=== PATIENT | female | born 2005 | race Two or more races ===

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

== ENCOUNTER 2024-04-18 18:37 | Emergency (ER) | payer OTHER ==
[2024-04-18] MEDS ORDERED: KETOROLAC 15 MG/ML 1 ML VIAL ONE (20:08)
== END 2024-04-18 20:25 | disposition home or self-care (01) ==
LOC: EC 18:37
DX: K08.89 Other specified disorders of teeth and supporting structures (principal)
CPT/HCPCS: 99282

== ENCOUNTER 2025-02-07 20:33 | Inpatient (IN) | payer MEDICAID, OTHER ==
--- NOTE | 2025-02-07 21:33 | ED ---
Anxiety HPI - General Chief Complaint: Anxiety Stated Complaint: Mental Health Time Seen by Provider: 02/07/25 20:51 Source: patient, RN notes reviewed Mode of arrival: ambulatory - History of Present Illness Initial Comments: This is a calm and cooperative 19-year-old female with history of depression/anxiety presenting with family for anxiety/panic attacks x 5 weeks. Patient states she has frequent episodes of overthinking causing hyperventilation and crying that has been recurrent for the past 5 weeks. States he has panic attacks often last for hours with associated numbness in her face/hands, including tonight. Patient endorses use of trazodone for sleep. Endorses going to [facility] and sees Renzo as her psychiatrist. Endorses recent start of new medication 7 days ago, stating current symptoms started before starting medication but have not improved despite use. Denies visual/auditory hallucinations, SI/HI. MD Complaint: anxiety Onset/Timin -: week(s) Symptoms: extremity numbness/tingling, perioral numbness/tingling Place: home Previous History of Same: Yes Quality: intermittent Provoking factors: emotional stress - Related Data Home Medications: Home Medications Medication Instructions Recorded Confirmed Vilazodone HCl [Viibryd] 10 mg PO DAILY 02/07/25 02/07/25 traZODone HCL [Desyrel] 50 mg PO HS 02/07/25 02/07/25 Allergies/Adverse Reactions: Allergies Allergy/AdvReac Type Severity Reaction Status Date / Time No Known Allergies Allergy Verified 02/07/25 20:37 Review of Systems ROS Statement: Those systems with pertinent positive or pertinent negative responses have been documented in the HPI. ROS Other: All systems not noted in ROS Statement are negative. Past Medical History Past Medical History: No Reported History History of Any Multi-Drug Resistant Organisms: None Reported Past Surgical History: Adenoidectomy Past Psychological History: Anxiety, Depression Smoking Status: Vaper Past Alcohol Use History: None Reported Past Drug Use History: None Reported General Exam Limitations: no limitations General appearance: alert, in no apparent distress Head exam: Present: atraumatic, normocephalic, normal inspection Eye exam: Present: normal appearance, PERRL, EOMI. Absent: scleral icterus, conjunctival injection, periorbital swelling ENT exam: Present: normal exam, mucous membranes moist Neck exam: Present: normal inspection. Absent: tenderness, meningismus, lymphadenopathy Respiratory exam: Present: normal lung sounds bilaterally. Absent: respiratory distress, wheezes, rales, rhonchi, stridor Cardiovascular Exam: Present: regular rate, normal rhythm, normal heart sounds. Absent: systolic murmur, diastolic murmur, rubs, gallop, clicks GI/Abdominal exam: Present: soft, normal bowel sounds. Absent: distended, tende rness, guarding, rebound, rigid Extremities exam: Present: normal inspection, full ROM, normal capillary refill. Absent: tenderness, pedal edema, joint swelling, calf tenderness Back exam: Present: normal inspection Neurological exam: Present: alert, oriented X3, CN II-XII intact Psychiatric exam: Present: normal affect, anxious Skin exam: Present: warm, dry, intact, normal color. Absent: rash Course Vital Signs 02/07/25 20:34 Temperature 98 F Pulse Rate 72 Respiratory 18 Rate Blood Pressure 127/86 O2 Sat by Pulse 100 Oximetry Medical Decision Making - Medical Decision Making Was pt. sent in by a medical professional or institution (, PA, ACCOUNTS RECEIVABLE MANAGER, urgent care, hospital, or [facility]...) When possible be specific @ -No Did you speak to anyone other than the patient for history (EMS, parent, family, police, friend...)? What history was obtained from this source @ -No Did you review nursing and triage notes (agree or disagree)? Why? @ -I reviewed and agree with nursing and triage notes Were old charts reviewed (outside hosp., previous admission, EMS record, old EKG, old radiological studies, urgent care reports/EKG's, [facility] records)? Report findings @ -No old charts were reviewed Differential Diagnosis (chest pain, altered mental status, abdominal pain women, abdominal pain men, vaginal bleeding, weakness, fever, dyspnea, syncope, headache, dizziness, GI bleed, back pain, seizure, CVA, palpatations, mental health, musculoskeletal)? @ -Differential Mental Health Depression, anxiety, bipolar, psychosis, schizophrenia, borderline personality, situational depression, adjustment disorder, behavioral disorder, brain tumor, malingering, substance abuse, encephalopathy, medication reaction, dementia, hypothyroidism, degenerative neurologic disorder, lupus.... This is not meant to be all-inclusive list EKG interpreted by me (3pts min.). @ -Not done X-rays interpreted by me (1pt min.). @ -None done CT interpreted by me (1pt min.). @ -None done U/S interpreted by me (1pt. min.). @ -None done What testing was considered but not performed or refused? (CT, X-rays, U/S, labs)? Why? @ -None What meds were considered but not given or refused? Why? @ -None Did you discuss the management of the patient with other professionals (professionals i.e. DrHenna, PA, ACCOUNTS RECEIVABLE MANAGER, lab, RT, psych nurse, transition social worker, superintendent seed mill, teacher, intelligence officer basic, lead case manager)? Give summary @ -No Was smoking cessation discussed for >3mins.? @ -No Was critical care preformed (if so, how long)? @ -No Were there social determinants of health that impacted care today? How? (Homelessness, low income, unemployed, alcoholism, drug addiction, transportation, low edu. Level, literacy, decrease access to med. care, skilled nursing, rehab)? @ -No Was there de-escalation of care discussed even if they declined (Discuss DNR or withdrawal of care, Hospice)? DNR status @ -No What co-morbidities impacted this encounter? (DM, HTN, Smoking, COPD, CAD, Cancer, CVA, ARF, Chemo, Hep., AIDS, mental health diagnosis, sleep apnea, morbid obesity)? @ -None Was patient admitted / discharged? Hospital course, mention meds given and route, prescriptions, significant lab abnormalities, going to OR and other pertinent info. @ -Patient spoke to EPS, admitting feeling tired of going through her current situation, creating concern for possible suicidal thoughts/ideation. Patient will be admitted to [facility] for further evaluation and treatment. Discussed patient with Dr. Jones. Undiagnosed new problem with uncertain prognosis? @ -No Drug Therapy requiring intensive monitoring for toxicity (Heparin, Nitro, Insulin, Cardizem)? @ -No Were any procedures done? @ -No Diagnosis/symptom? @ -Anxiety/depression, SI Acute, or Chronic, or Acute on Chronic? @ -Acute Uncomplicated (without systemic symptoms) or Complicated (systemic symptoms)? @ -Uncomplicated Side effects of treatment? @ -No Exacerbation, Progression, or Severe Exacerbation? @ -Exacerbation Poses a threat to life or bodily function? How? (Chest pain, [place], [place], pneumonia, PE, COPD, DKA, ARF, appy, cholecystitis, CVA, Diverticulitis, Homicidal, Suicidal, threat to staff... and all critical care pts) @ -Suicidal ideation - Lab Data Lab Results 02/07/25 Range/Units 22:53 SARS-CoV-2 (PCR) Not Detected (Not Detectd) Disposition Clinical Impression: Acute anxiety, Suicidal ideation Disposition: ADMITTED IP TO THIS [facility] Time of Disposition: 23:31 Decision Date: 02/07/25 Decision Time: 23:31
[2025-02-07] MEDS ORDERED: IBUPROFEN 600 MG TAB PO PRN (23:43)
[2025-02-07] MEDS ORDERED: MAGNESIUM HYDROXIDE 2,400 MG/30 ML CUP PO PRN (23:43)
[2025-02-07] MEDS ORDERED: HALOPERIDOL LACTATE 5 MG/ML 1 ML VIAL IM PRN (23:43)
[2025-02-07] MEDS ORDERED: LORazepam 2 MG/ML INJ IM PRN (23:43)
[2025-02-07] MEDS ORDERED: MAG HYDROX/AL HYDROX/SIMETH 355 ML BOTTLE PO PRN (23:43)
[2025-02-07] MEDS ORDERED: haloperidoL 5 MG TAB PO PRN (23:43)
[2025-02-08 00:17] LABS: Amphetamine Screen,Urine Not Detected (NotDetected); Barbiturate Screen,Urine Not Detected (NotDetected); Benzodiazepines Screen,Urine Not Detected (NotDetected); Cocaine Screen,Urine Not Detected (NotDetected); Methadone Screen, Urine Not Detected (NotDetected); Opiate Screen,Urine Not Detected (NotDetected); Oxycodone Screen, Urine Not Detected (NotDetected); Phencyclidine Screen,Urine Not Detected (NotDetected); Tricyclic Antidepressant,Urine Not Detected (NotDetected); Urn Cannabinoid Scrn Detected (NotDetected)
[2025-02-08] MEDS: ACETAMINOPHEN TAB 325 MG TAB PO PRN (01:05)
[2025-02-08] MEDS: LORazepam 1 MG TAB PO PRN (01:07)
[2025-02-08 08:17] LABS: Basophils # (A) 0.04 10*3/uL (0.00-0.10); Basophils % (A) 0.8 %; Eosinophils # (A) 0.07 10*3/uL (0.04-0.35); Eosinophils % (A) 1.4 %; HCT 40.9 % (37.2-46.3); HGB 13.8 g/dL (12.0-15.0); Lymphocytes # (A) 2.03 10*3/uL (0.90-5.00); Lymphocytes % (A) 40.3 %; MCH 28.6 pg (27.0-32.0); MCHC 33.7 g/dL (32.0-37.0); MCV 84.9 fL (80.0-97.0); Monocytes # (A) 0.46 10*3/uL (0.20-1.00); Monocytes % (A) 9.1 %; Neutrophils # (A) 2.43 10*3/uL (1.80-7.70); Neutrophils % (A) 48.2 %; Platelet Count 318 10*3/uL (140-440); RBC 4.82 10*6/uL (4.10-5.20); RDW 13.1 % (11.5-14.5); WBC 5.04 10*3/uL (4.50-10.00)
[2025-02-08 08:37] LABS: ALT 13 U/L (4-34); AST 26 U/L (14-36); African American GFR (CKD) >90 (>60 ml/min/1.73 sqM); Albumin 4.6 g/dL (3.5-5.0); Alkaline Phosphatase 44 U/L (38-126); Anion Gap 12 mmol/L; Blood Urea Nitrogen 11 mg/dL (7-17); Calcium 9.9 mg/dL (8.4-10.2); Carbon Dioxide 25 mmol/L (22-30); Chloride 104 mmol/L (98-107); Glucose 91 mg/dL (74-99); Non-African American GFR(CKD) >90 (>60 ml/min/1.73 sqM); Potassium 4.1 mmol/L (3.5-5.1); Sodium 141 mmol/L (137-145); Total Bilirubin 0.7 mg/dL (0.2-1.3); Total Protein 7.3 g/dL (6.3-8.2)
[2025-02-08 09:00] LABS: Appearance,Urine Clear (Clear); Bilirubin,Urine Negative (Negative); Blood,Urine Negative (Negative); Color,Urine Yellow; Glucose,Urine (UA) Negative (Negative); Ketones,Urine Negative (Negative); Leukocyte Esterase,Urine Negative (Negative); Nitrite,Urine Negative (Negative); PH, Urine 5.5 (5.0-8.0); Protein,Urine Trace (Negative); Specific Gravity,Urine 1.029 (1.001-1.035); Urobilinogen,Urine <2.0 mg/dL (<2.0)
[2025-02-08] MEDS: DULoxetine HCL 30 MG CAPSULE.DR PO SCH (13:09)
[2025-02-08] MEDS: LITHIUM CARBONATE 300 MG CAP PO SCH (13:09)
--- NOTE | 2025-02-08 14:34 | P.HP ---
Psychiatric H&P - . H&P Date: 02/08/25 History & Physical: Allergies Allergy/AdvReac Type Severity Reaction Status Date / Time No Known Allergies Allergy Verified 02/07/25 20:37 Vital Signs Temp 98.1 F 02/08/25 09:51 Pulse 82 02/08/25 09:51 Resp 14 02/08/25 09:51 BP 118/80 02/08/25 09:51 Pulse Ox 99 02/08/25 09:51 FiO2 Intake & Output 02/07/25 02/08/25 02/08/25 18:59 06:59 18:59 Weight 60.7 kg Laboratory Last Values WBC 5.04 10*3/uL (4.50-10.00) 02/08/25 07:34 RBC 4.82 10*6/uL (4.10-5.20) 02/08/25 07:34 Hgb 13.8 g/dL (12.0-15.0) 02/08/25 07:34 Hct 40.9 % (37.2-46.3) 02/08/25 07:34 MCV 84.9 fL (80.0-97.0) 02/08/25 07:34 MCH 28.6 pg (27.0-32.0) 02/08/25 07:34 MCHC 33.7 g/dL (32.0-37.0) 02/08/25 07:34 Plt Count 318 10*3/uL (140-440) 02/08/25 07:34 MPV 10.0 fL (9.5-12.2) 02/08/25 07:34 Immature Gran % (Auto) 0.2 % 02/08/25 07:34 Neutrophils % 48.2 % 02/08/25 07:34 Lymphocytes % 40.3 % 02/08/25 07:34 Monocytes % 9.1 % 02/08/25 07:34 Eosinophils % 1.4 % 02/08/25 07:34 Basophils % 0.8 % 02/08/25 07:34 Immature Gran # 0.01 10*3/uL (0.00-0.04) 02/08/25 07:34 Neutrophils # 2.43 10*3/uL (1.80-7.70) 02/08/25 07:34 Lymphocytes # 2.03 10*3/uL (0.90-5.00) 02/08/25 07:34 Monocytes # 0.46 10*3/uL (0.20-1.00) 02/08/25 07:34 Eosinophils # 0.07 10*3/uL (0.04-0.35) 02/08/25 07:34 Basophils # 0.04 10*3/uL (0.00-0.10) 02/08/25 07:34 Sodium 141 mmol/L (137-145) 02/08/25 07:34 Potassium 4.1 mmol/L (3.5-5.1) 02/08/25 07:34 Chloride 104 mmol/L (98-107) 02/08/25 07:34 Carbon Dioxide 25 mmol/L (22-30) 02/08/25 07:34 Anion Gap 12 mmol/L 02/08/25 07:34 BUN 11 mg/dL (7-17) 02/08/25 07:34 Creatinine 0.69 mg/dL (0.52-1.04) 02/08/25 07:34 Est GFR (CKD-EPI)AfAm >90 (>60 ml/min/1.73 sqM) 02/08/25 07:34 Est GFR (CKD-EPI)NonAf >90 (>60 ml/min/1.73 sqM) 02/08/25 07:34 Glucose 91 mg/dL (74-99) 02/08/25 07:[address] Glu mg/dL 103 mg/dL 02/08/25 07:34 Hemoglobin A1c 5.2 % (<=6.0) 02/08/25 07:34 Calcium 9.9 mg/dL (8.4-10.2) 02/08/25 07:34 Total Bilirubin 0.7 mg/dL (0.2-1.3) 02/08/25 07:34 AST 26 U/L (14-36) 02/08/25 07:34 ALT 13 U/L (4-34) 02/08/25 07:34 Alkaline Phosphatase 44 U/L (38-126) 02/08/25 07:34 Total Protein 7.3 g/dL (6.3-8.2) 02/08/25 07:34 Albumin 4.6 g/dL (3.5-5.0) 02/08/25 07:34 TSH 3.150 mIU/L (0.465-4.680) 02/08/25 07:34 Urine Color Yellow 02/08/25 08:43 Urine Appearance Clear (Clear) 02/08/25 08:43 Urine pH 5.5 (5.0-8.0) 02/08/25 08:43 Ur Specific [place] 1.029 (1.001-1.035) 02/08/25 08:43 Urine Protein Trace (Negative) H 02/08/25 08:43 Urine Glucose (UA) Negative (Negative) 02/08/25 08:43 Urine Ketones Negative (Negative) 02/08/25 08:43 Urine Blood Negative (Negative) 02/08/25 08:43 Urine Nitrite Negative (Negative) 02/08/25 08:43 Urine Bilirubin Negative (Negative) 02/08/25 08:43 Urine Urobilinogen <2.0 mg/dL (<2.0) 02/08/25 08:43 Ur Leukocyte Esterase Negative (Negative) 02/08/25 08:43 Urine HCG, Qual Not Detected (Not Detectd) 02/08/25 08:43 Urine Opiates Screen Not Detected (NotDetected) 02/07/25 22:50 Ur Oxycodone Screen Not Detected (NotDetected) 02/07/25 22:50 Urine Methadone Screen Not Detected (NotDetected) 02/07/25 22:50 Ur Barbiturates Screen Not Detected (NotDetected) 02/07/25 22:50 U Tricyclic Antidepress Not Detected (NotDetected) 02/07/25 22:50 Ur Phencyclidine Scrn Not Detected (NotDetected) 02/07/25 22:50 Ur Amphetamines Screen Not Detected (NotDetected) 02/07/25 22:50 U Methamphetamines Scrn Not Detected (NotDetected) 02/07/25 22:50 U Benzodiazepines Scrn Not Detected (NotDetected) 02/07/25 22:50 Urine Cocaine Screen Not Detected (NotDetected) 02/07/25 22:50 U Marijuana (THC) Screen Detected (NotDetected) H 02/07/25 22:50 SARS-CoV-2 (PCR) Not Detected (Not Detectd) 02/07/25 22:53 02/08/25 11:18 IDENTIFYING DATA: Patient is a 19-year-old female, currently living with her parents, and came back from [facility], single, no kids. also works for a [employer] company HPI: Patient presented to the hospital yesterday and was evaluated by EPS nurse and as per note "pt resting on stretcher in room. pt's mom, Irlanda, and sister, Maura, at bedside; family remained at pt's request. pt tearful throughout assessment and appears very tense as well as shivering. pt states, "I just had a severe episode." pt reports that she has been having what she refers to as "episodes" where she will suddenly and uncontrollably cry for hours at a time. pt and pt's sister reports that pt has been struggling with these "episodes" for some time, but that she would have one every three or four weeks. pt states that within the last couple of months she has been experiencing them gradually more and more often. pt states that it went from once every three or four weeks to a couple of times a week to every other day. pt states that she has had these non- stop crying spells every day for the past five days. pt states that she has been unable to function in her daily life. pt reports that she has been unable to work and needed to have her mother come pick her up from work today because she was crying too hard to drive. pt also states that she was "freaking out" and could not even manage to call or text her mother for some time. pt states that she was also unable to work because she began having this inconsolable crying spell in her cubicle. pt states that she kept trying to go into the bathroom to compose herself, but was unable to do so. pt also reports that she has not been able to sleep more than four hours per night due to crying spells and panic attacks. pt also reports that she has had no appetite and has lost roughly 20 pounds in the past month or so. pt's family voice concern over pt's significant decline and advise that pt has not been caring for her ADLs as well as she usually does. pt has also not been doing anything outside of work or stay at home which is also abnormal. pt reports that she is "very exhausted" and that "I can't do this anymore. I want it to just stop." pt reports that she has been experiencing worsening SI, but denies having a plan. pt states that she sometimes wishes she would not wake up because she is tired of feeling like this and tired of having "episodes." pt also states, "I am afraid of being alone. I can't be alone." pt reports that she has noticed significant worsening in symptoms since she was started on Viibryd about a week ago. pt denies HI and hallucinations. No delusional thoughts verbalized. pt cooperative with assessment." Patient was seen today for psychiatric assessment in the office. Patient claims that he is feeling "tired" and claims that she has been having a lot of panic attacks and crying a lot. Claims that "I hate everyone" and was getting worked up during the conversation. Claims that she has been unable to control herself and her emotions and is very easily triggered and "upset at myself". States that she has been having increasing her depression and also having these panic attacks which last 4 to 5 hours. Claims that there is not always a trigger however she is easily triggered by certain things. Claims that this has been getting worse for the past couple of years now. He is that is now affecting her school work and also her friendships. Claims that her sleep has been on and off and appetite has been on and off. Claims that she is still having fleeting thoughts of suicide no specific plan, denies any homicidal ideations. At this time patient denies any auditory or visual hallucinations. Patient does describe a history of having manic-like episodes where she has a lot of energy does not need to sleep and getting herself into trouble situations and after this usually crashes into depression. Patient admits to using marijuana claims that she uses it about 3 times a week mainly to help her "fall asleep". PAST PSYCHIATRIC HISTORY: Patient has a history of depression however is not sure if this is accurate. She claims that she been on several different medications in the past including vilazodone, trazodone, Celexa, Zoloft, Effexor and BuSpar. Patient denies any previous psychiatric hospitalizations. Claims that she follows up with the nurse practitioner [facility]. Patient denies any history of suicide attempts in the past. PMH: as per ER note ALLERGIES: as per EMR CHEMICAL DEPENDENCY HISTORY: as per HPI FAMILY PSYCHIATRIC/SUBSTANCE USE HISTORY: Claims that her sister also has depression SOCIAL HISTORY: Patient was born and raised in [place]. Claims that she currently lives in the area and with her family, completed in her third year at [employer]. She states that she is single she has no kids. She denies any legal history. 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 MENTAL STATUS EXAM: General Appearance: Patient appears to be frustrated, upset stated age is alert, directable, and attempts to cooperate. Patient appears to have fair hygiene and grooming. Behavior: Patient is seated without any agitated behavior. Upset, directable Speech: Patient's speech is fluent and nonpressured. Mood/Affect: Patient reports their mood is depressed anxious and upset, affect is congruent and tearful at times Suicidality/Homicidality: Patient denies having any homicidal ideation intent or plan. Admits to suicidal thoughts no specific intent or plan Perceptions: Patient denies any visual hallucinations and denies any auditory hallucinations Though content/process: There is no evidence of any delusional thought content and thought process is linear and goal-directed. Focused on her symptoms and also endorsing helplessness Memory and concentration: AOX3, grossly intact for the purposes of this session. Can spell "WORLD" backwards Judgment and insight: Fair STRENGTHS/WEAKNESSES: strength is that patient is resilient. Weakness is that pa tient is impulsive and also abuses marijuana INTELLECT: Average IMPRESSIONS: Depressive disorder unspecified, rule out bipolar depression versus major depressive disorder Generalized anxiety with panic attacks Cannabis use disorder PLAN: -Patient is admitted under voluntary status to MHU for stabilization of psychiatric symptoms and safety. Patient has signed adult voluntary form and has signed medication consent and is placed in patient's chart. -Medications : Cymbalta 30 mg daily for mood/anxiety, lithium 300 mg daily for mood stabilization/suicidal thoughts. Trazodone 75 mg nightly for mood/insomnia -Ativan and Haldol PRN for agitation/aggression -Patient was counselled on substance abuse and desired to cut back on use. Patient states they do not want rehab and wish to cut back subtance use on their own -Patient was informed of the risks, benefits and side effects of the medications and patient verbally consented to taking the medications. Patient signed med consent form and was placed in chart. Patient was offered medication information and accepted it -Internal Medicine consult to perform medical evaluation and physical. -NRT -not needed as patient does not smoke -SW on board for discharge planning. Encourage patient to participate in groups to work on coping skills. 02/08/25 14:27
[2025-02-08 15:02] VITALS: BMI 22.2
[2025-02-08 16:54] LABS: Chol/HDL Ratio 2.79 Ratio; LDL Cholesterol,Calculated 123.3 mg/dL (0.0-131.0); VLDL Calculation 12.72 mg/dL (5.00-40.00)
[2025-02-08] MEDS: traZODone HCL 50 MG TAB PO SCH (21:07)
[2025-02-09] MEDS ORDERED: ONDANSETRON ODT 4 MG TAB PO PRN (10:13)
--- NOTE | 2025-02-09 10:28 | P.PN ---
Progress Note - Text Progress Note Date: 02/09/25 Interval History: Patient was seen today for psychiatric follow. Patient was in her room, agree able to speak in the office today. Patient states that she feels mildly better compared to yesterday in terms of her mood and anxiety. Claims that she does not like being on the unit and believes that there are a couple of other male patients that are targeting her and being inappropriate with her. She was asking about discharge. Claims that she is not comfortable with the environment and also that she got a new roommate. Claims that she found it difficult to sleep last night. She was fairly tearful during conversation. Claims that she is having difficulty eating at this time. Was agreeable to have her nighttime medications increased and also her Cymbalta. Denies any auditory or visual hallucinations denies any suicidal or homicidal ideations intent or plan. MENTAL STATUS EXAM: General Appearance: Patient appears to be frustrated, upset, tearful today stated age is alert, directable, and attempts to cooperate. Patient appears to have fair hygiene and grooming. Behavior: Patient is seated without any agitated behavior. Tearful. Speech: Patient's speech is fluent and nonpressured. Mood/Affect: Patient reports their mood is depressed anxious, improving mildly, affect is congruent and tearful at times Suicidality/Homicidality: Patient denies having any homicidal ideation intent or plan. Denies any suicidal thoughts no specific intent or plan Perceptions: Patient denies any visual hallucinations and denies any auditory hallucinations Though content/process: There is no evidence of any delusional thought content and thought process is linear and goal-directed. Focused on her symptoms and also other patients on the unit that are bothering her Memory and concentration: AOX3, grossly intact for the purposes of this session Judgment and insight: Fair IMPRESSIONS: Depressive disorder unspecified, rule out bipolar depression versus major depressive disorder Generalized anxiety with panic attacks Cannabis use disorder PLAN: -Patient is admitted under voluntary status to MHU for stabilization of psychiatric symptoms and safety. Patient has signed adult voluntary form and has signed medication consent and is placed in patient's chart. -Medications : Increase Cymbalta 20 mg bid for mood/anxiety, lithium 300 mg daily for mood stabilization/suicidal thoughts. increase Trazodone 100 mg nightly for mood/insomnia, added melatonin 10 mg qhs for sleep -Ativan and Haldol PRN for agitation/aggression -NRT -not needed as patient does not smoke -SW on board for discharge planning. Encourage patient to participate in groups to work on coping skills. hopeful for discharge in 1-3 days if patient is improvi.ng psychiatricaly. will attempt to do a room change today to give the patient more privacy and follow up on further restrictions or closer monitoring for other potentially intrusive/inappropriate patients.
[2025-02-09 10:37] VITALS: RESP 16
[2025-02-09] MEDS: MELATONIN 5 MG TABLET PO SCH (20:32)
[2025-02-09] MEDS: traZODone HCL 100 MG TAB PO SCH (20:32)
--- NOTE | 2025-02-09 20:59 | P.HPIM ---
History of Present Illness H&P Date: 02/09/25 History of present illness; 19-year-old female with PMH of depression. Patient presents to the emergency department after having "severe episode" of uncontrollable crying for hours at a time. Patient denies any fever, chills, cough, sore throat, chest pain, trouble breathing, nausea, vomiting, abdominal pain, changes in urinary or bowel habits Patient denies any tobacco smoking or alcohol use. Endorses marijuana use. REVIEW OF SYSTEMS: All systems reviewed, pertinent positives and negatives noted in HPI. All other symptoms are negative. PHYSICAL EXAMINATION: Vitals reviewed GENERAL: No acute distress. Well developed, well nourished. HEENT: Pupils are round and equally reacting to light. EOMI. No scleral icterus. Normocephalic, atraumatic. CARDIOVASCULAR: S1 and S2 present. No murmurs, rubs, or gallops. PULMONARY: Chest is clear to auscultation, no wheezing, rhonchi, or crackles. MUSCULOSKELETAL: No apparent joint swelling and deformities. EXTREMITIES: No apparent cyanosis, clubbing, or pedal edema. NEUROLOGICAL: The patient is alert and oriented x3, Gross neurological exami nation did not reveal any focal deficits. 5/5 strength bilateral UE and LE; CN2- 12 intact, without gross abnormality. SKIN: No rash noted. Assessment and plan #Unspecified depressive disorder #Generalized anxiety disorder with panic attacks #Cannabis use disorder - Management per psych Lab work reviewed showing: - WBCs 5.04, hemoglobin 13.8, hematocrit 40.9, platelet 318; sodium 141, potassium 4.1, bicarb 25, BUN 11, creatinine 0.69, calcium 9.9, total bilirubin 0.7, AST 26, ALT 13, alkaline phosphatase 44; triglyceride 63.60, cholesterol 212, LDL 123.3, VLDL 12.72, HDL 76.0, TSH 3.150 - Urinalysis unremarkable - Urine toxicology screen positive for marijuana Code status: Full code Patient is stable from medical stand point Dictation was produced using [employer] dictation software. Please excuse any grammatical, word or spelling errors. Esvin Anthony MD PGY 1 IM Attestation : Patient seen and examined with medical doctor. Agree with above assessment a nd plan. Time spent : 35 min Past Medical History Past Medical History: No Reported History History of Any Multi-Drug Resistant Organisms: None Reported Past Surgical History: Adenoidectomy Past Anesthesia/Blood Transfusion Reactions: No Reported Reaction Past Psychological History: Anxiety, Depression Smoking Status: Former smoker Past Alcohol Use History: None Reported Past Drug Use History: None Reported Medications and Allergies Home Medications Medication Instructions Recorded Confirmed Type Vilazodone HCl [Viibryd] 10 mg PO DAILY 02/07/25 02/07/25 History traZODone HCL [Desyrel] 50 mg PO HS 02/07/25 02/07/25 History Allergies Allergy/AdvReac Type Severity Reaction Status Date / Time No Known Allergies Allergy Verified 02/07/25 20:37 Physical Exam Vitals: Vital Signs Temp Pulse Resp BP Pulse Ox 02/09/25 09:00 98.0 F 104 H 16 120/70 99 02/08/25 22:13 98.7 F 90 18 114/77 98 Intake and Output 02/09/25 02/09/25 02/09/25 06:59 14:59 22:59 Other: Weight 60.7 kg Results CBC & Chem 7: 02/08/25 07:34 02/08/25 07:34 Thrombosis Risk Factor Assmnt - Choose All That Apply Each Factor Represents 1 point: Oral contraceptives or hormone replacement therapy Other Risk Factors: No Other congenital or acquired thrombophilia - If yes, enter type in comment: No Thrombosis Risk Factor Assessment Total Risk Factor Score: 1 Thrombosis Risk Factor Assessment Level: Low Risk
[2025-02-09] MEDS: DULoxetine HCL 20 MG CAPSULE.DR PO SCH (21:52)
[2025-02-09 23:42] VITALS: TEMP 98.2
[2025-02-10 11:06] VITALS: BP 108/67; PULSE 118
--- NOTE | 2025-02-10 20:51 | P.DS ---
Providers Date of admission: 02/07/25 23:39 Attending physician: Manfred Moore MD Consults: 02/07/25 23:43 Consult Physician Routine Consulting Provider: Mariah Physician Consult Reason/Comments: H&P and medical Do you want consulting provider notified?: Yes Primary care physician: Stated None Hospital Course: Admission HPI: Admission note was completed by Dr. Moore: "IDENTIFYING DATA: Patient is a 19-year-old female, currently living with her parents, and came back from [facility], single, no kids. also works for a [employer] HPI: Patient presented to the hospital yesterday and was evaluated by EPS nurse and as per note "pt resting on stretcher in room. pt's mom, Irlanda, and sister, Maura, at bedside; family remained at pt's request. pt tearful throughout assessment and appears very tense as well as shivering. pt states, "I just had a severe episode." pt reports that she has been having what she refers to as "episodes" where she will suddenly and uncontrollably cry for hours at a time. pt and pt's sister reports that pt has been struggling with these "episodes" for some time, but that she would have one every three or four weeks. pt states that within the last couple of months she has been experiencing them gradually more and more often. pt states that it went from once every three or four weeks to a couple of times a week to every other day. pt states that she has had these non- stop crying spells every day for the past five days. pt states that she has been unable to function in her daily life. pt reports that she has been unable to w ork and needed to have her mother come pick her up from work today because she was crying too hard to drive. pt also states that she was "freaking out" and could not even manage to call or text her mother for some time. pt states that she was also unable to work because she began having this inconsolable crying spell in her cubicle. pt states that she kept trying to go into the bathroom to compose herself, but was unable to do so. pt also reports that she has not been able to sleep more than four hours per night due to crying spells and panic attacks. pt also reports that she has had no appetite and has lost roughly 20 pounds in the past month or so. pt's family voice concern over pt's significant decline and advise that pt has not been caring for her ADLs as well as she usually does. pt has also not been doing anything outside of work or stay at home which is also abnormal. pt reports that she is "very exhausted" and that "I can't do this anymore. I want it to just stop." pt reports that she has been experiencing worsening SI, but denies having a plan. pt states that she sometimes wishes she would not wake up because she is tired of feeling like this and tired of having "episodes." pt also states, "I am afraid of being alone. I can't be alone." pt reports that she has noticed significant worsening in symptoms since she was started on Viibryd about a week ago. pt denies HI and hallucinations. No delusional thoughts verbalized. pt cooperative with assessment." Patient was seen today for psychiatric assessment in the office. Patient claims that he is feeling "tired" and claims that she has been having a lot of panic attacks and crying a lot. Claims that "I hate everyone" and was getting worked up during the conversation. Claims that she has been unable to control herself and her emotions and is very easily triggered and "upset at myself". States that she has been having increasing her depression and also having these panic attacks which last 4 to 5 hours. Claims that there is not always a trigger however she is easily triggered by certain things. Claims that this has been getting worse for the past couple of years now. He is that is now affecting her school work and also her friendships. Claims that her sleep has been on and off and appetite has been on and off. Claims that she is still having fleeting thoughts of suicide no specific plan, denies any homicidal ideations. At this time patient denies any auditory or visual hallucinations. Patient does describe a history of having manic-like episodes where she has a lot of energy does not need to sleep and getting herself into trouble situations and after this usually crashes into depression. Patient admits to using marijuana claims that she uses it about 3 times a week mainly to help her "fall asleep". PAST PSYCHIATRIC HISTORY: Patient has a history of depression however is not sure if this is accurate. She claims that she been on several different medications in the past including vilazodone, trazodone, Celexa, Zoloft, Effexor and BuSpar. Patient denies any previous psychiatric hospitalizations. Claims that she follows up with the nurse practitioner Christos mcclure. Patient denies any history of suicide attempts in the past. PMH: as per ER note ALLERGIES: as per EMR CHEMICAL DEPENDENCY HISTORY: as per HPI FAMILY PSYCHIATRIC/SUBSTANCE USE HISTORY: Claims that her sister also has depression SOCIAL HISTORY: Patient was born and raised in [facility]. Claims that she currently lives in the area and with her family, completed in her third year at [employer]. She states that she is single she has no kids. She denies any legal history. 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 MENTAL STATUS EXAM: General Appearance: Patient appears to be frustrated, upset stated age is alert, directable, and attempts to cooperate. Patient appears to have fair hygiene and grooming. Behavior: Patient is seated without any agitated behavior. Upset, directable Speech: Patient's speech is fluent and nonpressured. Mood/Affect: Patient reports their mood is depressed anxious and upset, affect is congruent and tearful at times Suicidality/Homicidality: Patient denies having any homicidal ideation intent or plan. Admits to suicidal thoughts no specific intent or plan Perceptions: Patient denies any visual hallucinations and denies any auditory hallucinations Though content/process: There is no evidence of any delusional thought content and thought process is linear and goal-directed. Focused on her symptoms and also endorsing helplessness Memory and concentration: AOX3, grossly intact for the purposes of this session. Can spell "WORLD" backwards Judgment and insight: Fair STRENGTHS/WEAKNESSES: strength is that patient is resilient. Weakness is that patient is impulsive and also abuses marijuana INTELLECT: Average IMPRESSIONS: Depressive disorder unspecified, rule out bipolar depression versus major depressive disorder Generalized anxiety with panic attacks Cannabis use disorder PLAN: -Patient is admitted under voluntary status to MHU for stabilization of psychiatric symptoms and safety. Patient has signed adult voluntary form and has signed medication consent and is placed in patient's chart. -Medications: Cymbalta 30 mg daily for mood/anxiety, lithium 300 mg daily for mood stabilization/suicidal thoughts. Trazodone 75 mg nightly for mood/insomnia -Ativan and Haldol PRN for agitation/aggression -Patient was counselled on substance abuse and desired to cut back on use. Patient states they do not want rehab and wish to cut back subtance use on their own -Patient was informed of the risks, benefits and side effects of the medications and patient verbally consented to taking the medications. Patient signed med consent form and was placed in chart. Patient was offered medication information and accepted it -Internal Medicine consult to perform medical evaluation and physical. -NRT -not needed as patient does not smoke -SW on board for discharge planning. Encourage patient to participate in groups to work on coping skills." Hospital course: Upon admission to the unit patient was directable and agreeable to commence treatment and signed adult voluntary form. Patient got along well with other patients on the unit and followed unit protocol. Patient was compliant with the medications and denied any side effects throughout hospital course. Patient was started on Cymbalta and [place] and Trazodone. Patient spoke of her stressors and engaged in therapy both group and individual. Patient was also seen by medical team for history and physical exam. Throughout the course of the hospitalization patient gradually improved with regards to mood, anxiety, sleep and returned back to their baseline level of functioning, became more future oriented with improved insight and judgment. On the day of discharge patient denied any suicidal or homicidal ideation, intent or plan denied any auditory or visual hallucinations. Patient endorsed wanting to live for her health and family. The patient denied any access to guns or weapons. Patient denied any paranoia and did not endorse any delusions. Patient does not have a significant history of substance abuse, was counseled on abstaining from all substances including alcohol and marijuana. Patient was also counseled on the medications and need for regular compliance and was encouraged to follow-up with their outpatient appointment for mental health and also for primary care. Prior to discharge I called her mother who confirmed no concerns regarding discharge and reported patient will start an IOP program on 02/13/25 at 7am. Mental status exam: General Appearance: Patient appears to be stated age, adequate hygiene and grooming Behavior: Patient is calmly seated without any agitated behavior. Speech: Patient's speech is fluent and non-pressured. Mood/Affect: Patient reports their mood is "better", affect is congruent and euthymic. Suicidality/Homicidality: Patient denies having any suicidal or homicidal ideation intent or plan. Perceptions: Patient denies any auditory or visual hallucinations. Though content/process: There is no evidence of any delusional thought content and thought process is linear and goal-directed, more future oriented Memory and concentration: AOX3, grossly intact for the purposes of this session. Can spell "WORLD" backwards correctly. Judgment and insight: improved Impression: Depressive disorder unspecified, rule out bipolar depression versus major depressive disorder Generalized anxiety with panic attacks Cannabis use disorder Plan: -Continue with discharge today as patient has improved and stabilized psychiatrically and is not currently an imminent threat to herself and/or others. Patient will remain at chronically elevated risk for harm to self and/or others due to his impulsivity and polysubstance abuse. -Continue medications: Continue Cymbalta 20 mg bid for mood/anxiety, lithium 300 mg daily for mood stabilization/suicidal thoughts, Trazodone 100 mg nightly for mood/insomnia, melatonin 10 mg qhs for sleep. -Patient was counseled on the need for medication compliance and appropriate follow-up at mental health and also primary care for medical issues. Patient verbalized understanding and agreed. -Social work to arrange for and conduct family meeting to ensure safety upon discharge and answer any questions/concerns. Social work also to arrange for patients follow up appointments with [facility] for psychiatric care along with follow up with primary care provider. -Patient counseled on abstaining from recreational drugs and marijuana and alcohol. Was informed/educated on the adverse effects on their physical and mental health. Patient verbally agreed and understood. Patient was offered substance abuse treatment however declined at this time. -Patient was instructed to return to the hospital or seek immediate medical care if their psychiatric or medical symptoms do worsen or reoccur. Laboratory Tests Range/Units 02/07/25 02/07/25 02/08/25 22:50 22:53 07:34 WBC (4.50-10.00) 10*3/uL RBC (4.10-5.20) 10*6/uL Hgb (12.0-15.0) g/dL Hct (37.2-46.3) % MCV (80.0-97.0) fL MCH (27.0-32.0) pg MCHC (32.0-37.0) g/dL Plt Count (140-440) 10*3/uL MPV (9.5-12.2) fL Immature Gran % (Auto) % Neutrophils % % Lymphocytes % % Monocytes % % Eosinophils % % Basophils % % Immature Gran # (0.00-0.04) 10*3/uL Neutrophils # (1.80-7.70) 10*3/uL Lymphocytes # (0.90-5.00) 10*3/uL Monocytes # (0.20-1.00) 10*3/uL Eosinophils # (0.04-0.35) 10*3/uL Basophils # (0.00-0.10) 10*3/uL Sodium (137-145) mmol/L Potassium (3.5-5.1) mmol/L Chloride (98-107) mmol/L Carbon Dioxide (22-30) mmol/L Anion Gap mmol/L BUN (7-17) mg/dL Creatinine (0.52-1.04) mg/dL Est GFR (CKD-EPI)AfAm (>60 ml/min/1.73 sqM) Est GFR (CKD-EPI)NonAf (>60 ml/min/1.73 sqM) Glucose (74-99) mg/dL Estimated Ave Glu mg/dL mg/dL 103 Hemoglobin A1c (<=6.0) % 5.2 Calcium (8.4-10.2) mg/dL Total Bilirubin (0.2-1.3) mg/dL AST (14-36) U/L ALT (4-34) U/L Alkaline Phosphatase (38-126) U/L Total Protein (6.3-8.2) g/dL Albumin (3.5-5.0) g/dL Triglycerides (0.00-149.00) mg/dL Cholesterol (0.00-200.00) mg/dL LDL Cholesterol, Calc (0.0-131.0) mg/dL VLDL Cholesterol, Calc (5.00-40.00) mg/dL HDL Cholesterol (40.00-60.00) mg/dL Cholesterol/HDL Ratio Ratio TSH (0.465-4.680) mIU/L Urine Color Urine Appearance (Clear) Urine pH (5.0-8.0) Ur Specific [place] (1.001-1.035) Urine Protein (Negative) Urine Glucose (UA) (Negative) Urine Ketones (Negative) Urine Blood (Negative) Urine Nitrite (Negative) Urine Bilirubin (Negative) Urine Urobilinogen (<2.0) mg/dL Ur Leukocyte Esterase (Negative) Urine HCG, Qual (Not Detectd) Urine Opiates Screen (NotDetected) Not Detected Ur Oxycodone Screen (NotDetected) Not Detected Urine Methadone Screen (NotDetected) Not Detected Ur Barbiturates Screen (NotDetected) Not Detected U Tricyclic Antidepress (NotDetected) Not Detected Ur Phencyclidine Scrn (NotDetected) Not Detected Ur Amphetamines Screen (NotDetected) Not Detected U Methamphetamines Scrn (NotDetected) Not Detected U Benzodiazepines Scrn (NotDetected) Not Detected Urine Cocaine Screen (NotDetected) Not Detected U Marijuana (THC) Screen (NotDetected) Detected H SARS-CoV-2 (PCR) (Not Detectd) Not Detected Range/Units 02/08/25 02/08/25 02/08/25 07:34 07:34 08:43 WBC (4.50-10.00) 10*3/uL 5.04 RBC (4.10-5.20) 10*6/uL 4.82 Hgb (12.0-15.0) g/dL 13.8 Hct (37.2-46.3) % 40.9 MCV (80.0-97.0) fL 84.9 MCH (27.0-32.0) pg 28.6 MCHC (32.0-37.0) g/dL 33.7 Plt Count (140-440) 10*3/uL 318 MPV (9.5-12.2) fL 10.0 Immature Gran % (Auto) % 0.2 Neutrophils % % 48.2 Lymphocytes % % 40.3 Monocytes % % 9.1 Eosinophils % % 1.4 Basophils % % 0.8 Immature Gran # (0.00-0.04) 10*3/uL 0.01 Neutrophils # (1.80-7.70) 10*3/uL 2.43 Lymphocytes # (0.90-5.00) 10*3/uL 2.03 Monocytes # (0.20-1.00) 10*3/uL 0.46 Eosinophils # (0.04-0.35) 10*3/uL 0.07 Basophils # (0.00-0.10) 10*3/uL 0.04 Sodium (137-145) mmol/L 141 Potassium (3.5-5.1) mmol/L 4.1 Chloride (98-107) mmol/L 104 Carbon Dioxide (22-30) mmol/L 25 Anion Gap mmol/L 12 BUN (7-17) mg/dL 11 Creatinine (0.52-1.04) mg/dL 0.69 Est GFR (CKD-EPI)AfAm (>60 ml/min/1.73 sqM) >90 Est GFR (CKD-EPI)NonAf (>60 ml/min/1.73 sqM) >90 Glucose (74-99) mg/dL [address] Glu mg/dL mg/dL Hemoglobin A1c (<=6.0) % Calcium (8.4-10.2) mg/dL 9.9 Total Bilirubin (0.2-1.3) mg/dL 0.7 AST (14-36) U/L 26 ALT (4-34) U/L 13 Alkaline Phosphatase (38-126) U/L 44 Total Protein (6.3-8.2) g/dL 7.3 Albumin (3.5-5.0) g/dL 4.6 Triglycerides (0.00-149.00) mg/dL 63.60 Cholesterol (0.00-200.00) mg/dL 212.00 H LDL Cholesterol, Calc (0.0-131.0) mg/dL 123.3 VLDL Cholesterol, Calc (5.00-40.00) mg/dL 12.72 HDL Cholesterol (40.00-60.00) mg/dL 76.00 H Cholesterol/HDL Ratio Ratio 2.79 TSH (0.465-4.680) mIU/L 3.150 Urine Color Yellow Urine Appearance (Clear) Clear Urine pH (5.0-8.0) 5.5 Ur Specific [place] (1.001-1.035) 1.029 Urine Protein (Negative) Trace H Urine Glucose (UA) (Negative) Negative Urine Ketones (Negative) Negative Urine Blood (Negative) Negative Urine Nitrite (Negative) Negative Urine Bilirubin (Negative) Negative Urine Urobilinogen (<2.0) mg/dL <2.0 Ur Leukocyte Esterase (Negative) Negative Urine HCG, Qual (Not Detectd) Urine Opiates Screen (NotDetected) Ur Oxycodone Screen (NotDetected) Urine Methadone Screen (NotDetected) Ur Barbiturates Screen (NotDetected) U Tricyclic Antidepress (NotDetected) Ur Phencyclidine Scrn (NotDetected) Ur Amphetamines Screen (NotDetected) U Methamphetamines Scrn (NotDetected) U Benzodiazepines Scrn (NotDetected) Urine Cocaine Screen (NotDetected) U Marijuana (THC) Screen (NotDetected) SARS-CoV-2 (PCR) (Not Detectd) Range/Units 02/08/25 08:43 WBC (4.50-10.00) 10*3/uL RBC (4.10-5.20) 10*6/uL Hgb (12.0-15.0) g/dL Hct (37.2-46.3) % MCV (80.0-97.0) fL MCH (27.0-32.0) pg MCHC (32.0-37.0) g/dL Plt Count (140-440) 10*3/uL MPV (9.5-12.2) fL Immature Gran % (Auto) % Neutrophils % % Lymphocytes % % Monocytes % % Eosinophils % % Basophils % % Immature Gran # (0.00-0.04) 10*3/uL Neutrophils # (1.80-7.70) 10*3/uL Lymphocytes # (0.90-5.00) 10*3/uL Monocytes # (0.20-1.00) 10*3/uL Eosinophils # (0.04-0.35) 10*3/uL Basophils # (0.00-0.10) 10*3/uL Sodium (137-145) mmol/L Potassium (3.5-5.1) mmol/L Chloride (98-107) mmol/L Carbon Dioxide (22-30) mmol/L Anion Gap mmol/L BUN (7-17) mg/dL Creatinine (0.52-1.04) mg/dL Est GFR (CKD-EPI)AfAm (>60 ml/min/1.73 sqM) Est GFR (CKD-EPI)NonAf (>60 ml/min/1.73 sqM) Glucose (74-99) mg/dL Estimated Ave Glu mg/dL mg/dL Hemoglobin A1c (<=6.0) % Calcium (8.4-10.2) mg/dL Total Bilirubin (0.2-1.3) mg/dL AST (14-36) U/L ALT (4-34) U/L Alkaline Phosphatase (38-126) U/L Total Protein (6.3-8.2) g/dL Albumin (3.5-5.0) g/dL Triglycerides (0.00-149.00) mg/dL Cholesterol (0.00-200.00) mg/dL LDL Cholesterol, Calc (0.0-131.0) mg/dL VLDL Cholesterol, Calc (5.00-40.00) mg/dL HDL Cholesterol (40.00-60.00) mg/dL Cholesterol/HDL Ratio Ratio TSH (0.465-4.680) mIU/L Urine Color Urine Appearance (Clear) Urine pH (5.0-8.0) Ur Specific [place] (1.001-1.035) Urine Protein (Negative) Urine Glucose (UA) (Negative) Urine Ketones (Negative) Urine Blood (Negative) Urine Nitrite (Negative) Urine Bilirubin (Negative) Urine Urobilinogen (<2.0) mg/dL Ur Leukocyte Esterase (Negative) Urine HCG, Qual (Not Detectd) Not Detected Urine Opiates Screen (NotDetected) Ur Oxycodone Screen (NotDetected) Urine Methadone Screen (NotDetected) Ur Barbiturates Screen (NotDetected) U Tricyclic Antidepress (NotDetected) Ur Phencyclidine Scrn (NotDetected) Ur Amphetamines Screen (NotDetected) U Methamphetamines Scrn (NotDetected) U Benzodiazepines Scrn (NotDetected) Urine Cocaine Screen (NotDetected) U Marijuana (THC) Screen (NotDetected) SARS-CoV-2 (PCR) (Not Detectd) Vital Signs (72 hours) 02/07/25 02/07/25 02/08/25 23:41 23:55 09:51 Temperature 97.6 F 97.9 F 98.1 F Pulse Rate 82 Pulse Rate [ 94 82 Pulse Oximetery ] Respiratory 16 17 14 Rate Blood Pressure 115/84 Blood Pressure 120/82 118/80 [Left Arm] O2 Sat by Pulse 97 99 99 Oximetry 02/08/25 02/09/25 02/09/25 22:13 09:00 21:00 Temperature 98.7 F 98.0 F 98.2 F Pulse Rate Pulse Rate [ 90 104 H 108 H Pulse Oximetery ] Respiratory 18 16 16 Rate Blood Pressure Blood Pressure 114/77 120/70 103/75 [Left Arm] O2 Sat by Pulse 98 99 98 Oximetry 02/10/25 11:04 Temperature 98.2 F Pulse Rate Pulse Rate [ 118 H Pulse Oximetery ] Respiratory 16 Rate Blood Pressure Blood Pressure 108/67 [Left Arm] O2 Sat by Pulse 99 Oximetry Patient Condition at Discharge: Stable Plan - Discharge Summary Discharge Rx Participant: No New Discharge Prescriptions: New DULoxetine HCL [Cymbalta] 20 mg PO BID 30 Days #60 cap traZODone HCL [Desyrel] 100 mg PO HS 30 Days #30 tab Melatonin 10 mg PO HS tab [place] Carbonate 300 mg PO DAILY 30 Days #30 cap Discontinued traZODone HCL [Desyrel] 50 mg PO HS Vilazodone HCl [Viibryd] 10 mg PO DAILY Discharge Medication List DULoxetine HCL [Cymbalta] 20 mg PO BID 30 Days #60 cap 02/10/25 [Rx] [place] Carbonate 300 mg PO DAILY 30 Days #30 cap 02/10/25 [Rx] Melatonin 10 mg PO HS tab 02/10/25 [Rx] traZODone HCL [Desyrel] 100 mg PO HS 30 Days #30 tab 02/10/25 [Rx] Follow up Appointment(s)/Referral(s): [facility] [Other] - 02/13/25 7:00 am (02/13 @ 07:00 [facility]) [facility] [NON-STAFF] - 1 Week Patient Instructions/Handouts: Depression (DC), Generalized Anxiety Disorder (ED), Cannabis Abuse (DC), Panic Attack (ED) Activity/Diet/Wound Care/Special Instructions: Avoid the use of street drugs and alcohol. Take all medications as prescribed. When you are in need of refills on your medications, please contact your medical provider and/or outpatient psychiatrist/provider to have this done. Please go to your scheduled outpatient appointment for aftercare treatment. If symptoms return or become worse, call the crisis line at and/or go to the nearest emergency room for evaluation. National Suicide Hotline [address] confidentiality statement: "The information contained in this communication, including attachments, is confidential, may be privileged, and is intended only for the use of the named recipient(s). Unauthorized use, disclosure, forwarding or copying is strictly prohibited and may be unlawful. If you have received this communication in error, please notify me IMMEDIATELY at the phone number or pager listed above. Discharge Disposition: HOME SELF-CARE
== END 2025-02-10 19:00 | disposition home or self-care (01) | DRG 751 ==
LOC: EC 20:33 → 3MHU 23:39
PROVIDERS: ADMIT Psychiatry & Neurology Psychiatry; ATTEND Psychiatry & Neurology Psychiatry
DX: F32.A Depression, unspecified (principal); F41.0 Panic disorder [episodic paroxysmal anxiety]; F17.290 Nicotine dependence, other tobacco product, uncomplicated; F41.1 Generalized anxiety disorder; F12.10 Cannabis abuse, uncomplicated; R45.83 Excessive crying of child, adolescent or adult; G47.00 Insomnia, unspecified; R45.851 Suicidal ideations; Z79.899 Other long term (current) drug therapy; Z71.51 Drug abuse counseling and surveillance of drug abuser; Z11.52 Encounter for screening for COVID-19
CPT/HCPCS: 80053; 80061; 80306; 81003; 81025; 82075; 83036; 84443; 85025; 87635; 99285